=== PATIENT | male | born 1980 | race African-American/Black ===

== ENCOUNTER 2019-10-05 18:36 | Emergency (ER) | payer MEDICAID ==
[~2019-10-05] VITALS: Ht 177.8 cm; Wt 82.0 kg
[2019-10-05] MEDS ORDERED: LORAZEPAM 2MG/ML CPJ IM STA (19:04)
[2019-10-05] MEDS ORDERED: HALOPERIDOL LACTATE 5MG/ML VIAL IM STA (19:04)
[2019-10-05 22:52] LABS: CHLORIDE 108 mEq/L (98-107)
[2019-10-05 22:53] LABS: BASOPHILS % 0.1 % (0.0-2.0); EOSINOPHILS % 0.9 % (0.0-5.0); HEMATOCRIT. 43.6 % (42.0-52.0); MEAN CORPUSCULAR HEMOGLOBIN 32.3 pg (28.0-32.0); MEAN CORPUSCULAR VOLUME 93.6 fL (80.0-94.0); MEAN PLATELET VOLUME 8.8 fl (7.4-10.4); MONOCYTES % 5.1 % (2.0-8.0); NEUTROPHILS % 70.9 % (40.0-76.0); PLATELET 282 x1000/uL (130-400); RED BLOOD CELL COUNT 4.66 mill/uL (4.7-6.1); RED CELL DISTRIBUTION WIDTH 13.1 % (11.6-14.6)
[2019-10-05 22:55] LABS: ETHANOL BLOOD 266 mg/dL
[2019-10-05 23:03] LABS: CLARITY URINE CLEAR (CLEAR); COLOR URINE YELLOW (YELLOW); KETONES URINE NEGATIVE (NEGATIVE); LEUKOCYTE ESTERASE URINE NEGATIVE (NEGATIVE); NITRITE URINE NEGATIVE (NEGATIVE); OCCULT BLOOD URINE 3+ (NEGATIVE); PROTEIN URINE NEGATIVE (NEGATIVE); SPECIFIC GRAVITY URINE 1.014 (1.005-1.030); UROBILINOGEN URINE 0.2 E.U./dL (0.2-1.0)
[2019-10-05 23:16] LABS: *AMPHETAMINES SCREEN URINE PRESUMTIVE POSITIVE (NEGATIVE); *BARBITURATES SCREEN URINE NEGATIVE (NEGATIVE); *BENZODIAZEPINES SCREEN URINE PRESUMTIVE POSITIVE (NEGATIVE); *COCAINE SCREEN URINE NEGATIVE (NEGATIVE); METHADONE URINE SCREEN NEGATIVE (NEGATIVE); OPIATES URINE SCREEN NEGATIVE (NEGATIVE)
[2019-10-05 23:17] LABS: CANNABINOID URINE SCREEN PRESUMTIVE POSITIVE (NEGATIVE); PHENCYCLIDINE URINE SCREEN NEGATIVE (NEGATIVE)
[2019-10-06 07:26] VITALS: BP 126/82
== END 2019-10-06 08:24 | disposition home or self-care (01) ==
LOC: ER 18:36
DX: F15.129 Other stimulant abuse with intoxication, unspecified (principal); F91.8 Other conduct disorders; F10.129 Alcohol abuse with intoxication, unspecified; F16.10 Hallucinogen abuse, uncomplicated; F12.10 Cannabis abuse, uncomplicated; S80.812A Abrasion, left lower leg, initial encounter; R41.82 Altered mental status, unspecified; Y90.8 Blood alcohol level of 240 mg/100 ml or more; Z88.6 Allergy status to analgesic agent; Z78.1 Physical restraint status; X58.XXXA Exposure to other specified factors, initial encounter; Y93.89 Activity, other specified; Y92.89 Other specified places as the place of occurrence of the external cause
CPT/HCPCS: 36415; 80053; 80305; 80320; 81003; 85025; 96372; 99285; J1630; J2060; G0480

== ENCOUNTER 2019-10-06 08:30 | Emergency (ER) | payer MEDICAID ==
[~2019-10-06] VITALS: Ht 180.3 cm; Wt 91.0 kg
[2019-10-06] MEDS ORDERED: ACETAMINOPHEN 325MG TABLET PO ONE (10:00)
[2019-10-07 07:30] VITALS: BP 120/68
== END 2019-10-07 09:30 | disposition left against medical advice (07) ==
LOC: ER 08:30
DX: S92.352A Displaced fracture of fifth metatarsal bone, left foot, initial encounter for closed fracture (principal); W18.39XA Other fall on same level, initial encounter; Y93.89 Activity, other specified; Y92.89 Other specified places as the place of occurrence of the external cause; Y99.8 Other external cause status; Z98.890 Other specified postprocedural states; Z88.6 Allergy status to analgesic agent
CPT/HCPCS: 29515; 73590; 73630; 99285

== ENCOUNTER 2019-10-07 09:38 | Emergency (ER) | payer MEDICAID ==
[~2019-10-07] VITALS: Ht 182.9 cm; Wt 91.0 kg
[2019-10-07] MEDS ORDERED: TRAMADOL 50MG TABLET PO ONE (11:45)
[2019-10-07 11:57] VITALS: BP 119/77
== END 2019-10-07 13:56 | disposition left against medical advice (07) ==
LOC: ER 09:38
DX: S02.31XA Fracture of orbital floor, right side, initial encounter for closed fracture (principal); F11.10 Opioid abuse, uncomplicated; Z88.6 Allergy status to analgesic agent; Z98.890 Other specified postprocedural states; Y04.0XXA Assault by unarmed brawl or fight, initial encounter; Y93.89 Activity, other specified; Y92.89 Other specified places as the place of occurrence of the external cause; Y99.8 Other external cause status
CPT/HCPCS: 29515; 70486; 99284

== ENCOUNTER 2019-10-07 18:34 | Emergency (ER) | payer MEDICAID ==
[~2019-10-07] VITALS: Ht 182.9 cm; Wt 101.0 kg
[2019-10-07] MEDS ORDERED: ONDANSETRON 4MG ODT PO ONE (21:30)
[2019-10-07] MEDS ORDERED: HYDROCODONE/ACETAMINOPHEN 10/325MG TABLET PO ONE (21:30)
[2019-10-07] MEDS ORDERED: TETRACAINE 0.5% OPHTH DROPS 4ML RIGHTEYE ONE (21:45)
[2019-10-07] MEDS ORDERED: AMOXICILLIN/POTASSIUM CLAVULANATE 875/125MG TAB PO ONE (21:45)
[2019-10-07] MEDS ORDERED: FLUORESCEIN SODIUM 1MG/STRIP RIGHTEYE ONE (21:45)
[2019-10-08 01:04] VITALS: BP 126/82
== END 2019-10-08 01:21 | disposition short-term general hospital (02) ==
LOC: ER 18:34
DX: S02.31XA Fracture of orbital floor, right side, initial encounter for closed fracture (principal); F41.9 Anxiety disorder, unspecified; I10 Essential (primary) hypertension; F31.9 Bipolar disorder, unspecified; F11.10 Opioid abuse, uncomplicated; Z59.0 Homelessness; Z87.11 Personal history of peptic ulcer disease; Z88.6 Allergy status to analgesic agent; Z91.14 Patient's other noncompliance with medication regimen; Y08.89XA Assault by other specified means, initial encounter; Y93.89 Activity, other specified; Y92.89 Other specified places as the place of occurrence of the external cause; Y99.8 Other external cause status
CPT/HCPCS: 99285; Q0162

== ENCOUNTER 2023-10-18 13:46 | Emergency (ER) | payer MEDICAID, OTHER ==
[~2023-10-18] VITALS: Ht 175.3 cm; Wt 96.0 kg
[2023-10-18 13:56] VITALS: O2SAT 99
[2023-10-18] MEDS: ACETAMINOPHEN 325MG TABLET PO ONE (15:53)
[2023-10-18] MEDS ORDERED: ACET325T52 MT (16:23)
[2023-10-18 16:28] VITALS: BP 127/64; PULSE 90; RESP 16; TEMP 98.4
== END 2023-10-18 16:30 | disposition home or self-care (01) ==
LOC: ER 13:46
DX: S09.90XA Unspecified injury of head, initial encounter (principal); S13.4XXA Sprain of ligaments of cervical spine, initial encounter; F41.9 Anxiety disorder, unspecified; F31.9 Bipolar disorder, unspecified; I10 Essential (primary) hypertension; F12.10 Cannabis abuse, uncomplicated; V49.59XA Passenger injured in collision with other motor vehicles in traffic accident, initial encounter; Y93.89 Activity, other specified; Y92.89 Other specified places as the place of occurrence of the external cause; Y99.8 Other external cause status
CPT/HCPCS: 73030; 99284

== ENCOUNTER 2023-11-03 11:46 | Emergency (ER) | payer MEDICAID, OTHER ==
[~2023-11-03] VITALS: Ht 180.3 cm; Wt 98.0 kg
[~2023-11-03 11:46] MED LIST: ACET325T52 MT
[2023-11-03 11:48] VITALS: O2SAT 99
[2023-11-03] MEDS: ACETAMINOPHEN 325MG TABLET PO ONE (12:00)
[2023-11-03] MEDS: TETANUS, DIPHTHERIA, PERTUSSIS VAC/PF 0.5ML (>10YR OLD) IM ONE (16:06)
[2023-11-03 17:33] VITALS: BP 138/87; PULSE 88; RESP 18; TEMP 98.4
== END 2023-11-03 17:55 | disposition home or self-care (01) ==
LOC: ER 11:46
DX: R55 Syncope and collapse (principal); F41.9 Anxiety disorder, unspecified; F32.9 Major depressive disorder, single episode, unspecified; F12.10 Cannabis abuse, uncomplicated; Y08.89XA Assault by other specified means, initial encounter; Y93.89 Activity, other specified; Y92.89 Other specified places as the place of occurrence of the external cause; Y99.8 Other external cause status
CPT/HCPCS: 73130; 70450; 70486; 72125; 90715; 90471; 99285; Z7610 ×2

== ENCOUNTER 2024-12-11 21:12 | Emergency (ER) | payer MEDICAID ==
[~2024-12-11] VITALS: Ht 188 cm; Wt 91.0 kg
[~2024-12-11 21:12] MED LIST changes: -ACET325T52 MT; +CHLO25CA10 MT; +THIA100T72 MT
[2024-12-11 21:16] VITALS: O2SAT 99
[2024-12-12 00:39] LABS: BASOPHILS % 0.3 % (0.0-2.0); EOSINOPHILS % 1.9 % (0.0-5.0); HEMATOCRIT. 37.9 % (42.0-52.0); HEMOGLOBIN. 12.7 g/dL (14.0-18.0); LYMPHOCYTES % 40.9 % (20.0-50.0); MEAN CORPUSCULAR HEMOGLOBIN 32.4 pg (28.0-32.0); MEAN CORPUSCULAR HGB CONC 33.6 g/dL (31.0-37.0); MEAN CORPUSCULAR VOLUME 96.5 fL (80.0-94.0); MEAN PLATELET VOLUME 8.9 fl (7.4-10.4); MONOCYTES % 7.3 % (2.0-8.0); NEUTROPHILS % 49.6 % (40.0-76.0); PLATELET 272 x1000/uL (130-400); RED BLOOD CELL COUNT 3.93 mill/uL (4.7-6.1); RED CELL DISTRIBUTION WIDTH 13.9 % (11.6-14.6)
[2024-12-12 00:50] LABS: CHLORIDE 107 mEq/L (98-107); SODIUM 144 mEq/L (136-145)
[2024-12-12 00:51] LABS: CALCIUM 8.9 mg/dL (8.7-10.4); CARBON DIOXIDE 28 mEq/L (21-32)
[2024-12-12 00:56] LABS: CREATININE 1.1 mg/dL (0.6-1.3); ETHANOL BLOOD 164 mg/dL (<10); GLUCOSE 107 mg/dL (70-105); UREA NITROGEN BLOOD 7 mg/dL (9-23)
[2024-12-12 00:58] LABS: ACETAMINOPHEN < 2 ug/mL (10-30)
[2024-12-12 03:34] VITALS: TEMP 36.6
[2024-12-12 04:41] VITALS: BP 115/70; PULSE 74; RESP 16; O2SAT 98
== END 2024-12-12 04:45 | disposition home or self-care (01) ==
LOC: ER 21:12
DX: F10.129 Alcohol abuse with intoxication, unspecified (principal); I10 Essential (primary) hypertension; F12.90 Cannabis use, unspecified, uncomplicated; Z79.899 Other long term (current) drug therapy; Z88.6 Allergy status to analgesic agent; Y90.9 Presence of alcohol in blood, level not specified
CPT/HCPCS: 99283; 80048; 80307; 80329; 80320; 85025; 36415; Z7610; A4606; G0480